=== PATIENT | male | born 1990 | race Caucasian/White ===

== ENCOUNTER 2017-01-28 13:33 | Emergency (ER) | payer OTHER ==
[~2017-01-28] VITALS: Ht 172.7 cm; Wt 72.6 kg
[2017-01-28 13:36] VITALS: BP 135/65
== END 2017-01-28 14:37 | disposition home or self-care (01) ==
LOC: ED 13:33
DX: S40.012A Contusion of left shoulder, initial encounter (principal); V00.131A Fall from skateboard, initial encounter; Y93.51 Activity, roller skating (inline) and skateboarding; Y92.89 Other specified places as the place of occurrence of the external cause; Y99.8 Other external cause status